=== PATIENT | female | born 1995 | race American Indian/Alaskan Native ===

== ENCOUNTER 2018-09-27 19:38 | Emergency (ER) | payer MEDICAID ==
--- NOTE | 2018-09-27 19:49 | Emergency Department Report ---
Blank Doc - Documentation Documentation: This is a 23-year-old female that presents with abdominal pain, right knee and right ankle pain s/p fall. Stated is 16 weeks . Denies any vaginal bleeding. This initial assessment/diagnostic orders/clinical plan/treatment(s) is/are subject to change based on patient's health status, clinical progression and re- assessment by fellow clinical providers in the ED. Further treatment and workup at subsequent clinical providers discretion. Patient/guardians urged not to elope from the ED as their condition may be serious if not clinically assessed and managed. Initial orders include: 1- Patient sent to [facility] for further evaluation and treatment 2- US OB
[2018-09-27 19:51] VITALS: BP 135/69
[2018-09-27] MEDS ORDERED: TYLENOL PO ONE (19:57)
[2018-09-27] MEDS ORDERED: TYLENOL ONE (19:57)
--- NOTE | 2018-09-27 21:51 | Ultrasound Report ---
ULTRASOUND OBSTETRIC INDICATION: abdominal pain. Clinical Gestational Age (GA): Not provided. TECHNIQUE: Transabdominal. COMPARISON: None available. FINDINGS: There is a single intrauterine . Biparietal Diameter = 2.9 cm = 15 weeks, 2 day(s). Head Circumference = 11.5 cm = 15 weeks, 4 day(s). Abdominal Circumference = 9.5 cm = 15 weeks, 5 day(s). Femur Length = 1.9 cm = 15 weeks, 4 day(s). Average Ultrasound Age (AUA) = 15 weeks, 4 day(s). Heart Rate: 174 beats per minute. Estimated Weight in grams (if calculated): 129 Position: breech. Cervix: Closed. Length in cm (if measured): 3.2 Placenta: anterior and free of the os. Amniotic Fluid Volume: normal Maternal Adnexa: No significant abnormality. IMPRESSION: 1. Single, living intrauterine with estimated sonographic age of 15 weeks, 4 day(s). 2. No significant sonographic abnormality. Signer Name: Rajan Paulino MD Signed: 09/27/2018 9:47 PM Workstation Name: [email or web address]
--- NOTE | 2018-09-28 00:15 | Emergency Department Report ---
ED Abdominal Pain HPI - General Chief Complaint: Abdominal Pain Stated Complaint: RIGHT KNEE AND ANKLE PAIN ABD PAIN Time Seen by Provider: 09/27/18 19:48 Source: patient, EMS Mode of arrival: Ambulatory Limitations: No Limitations - History of Present Illness Initial Comments: Pt is a 23 y/o aaf who presents for abd pain with vaginal bleeding today s/p GLF today landng on right knee and akle, pt denies hx of ovarian cyst or fibroidst LMP 4 weeks ago , no hx of AUB , pt denies fever or chills there is nausea no vomiting there are no exacerbating or relieve factors. pt remains ambulatory with steady gait at this time. MD Complaint: abdominal pain Onset/Timin -: days(s) Location: diffuse Migration to: no migration Severity: moderate Severity scale (0 -10): 5 Quality: cramping Consistency: intermittent Improves With: nothing Worsens With: nothing Associated Symptoms: nausea. denies: vomiting, diarrhea, fever, chills, constipation, dysuria, melena, hematuria - Related Data LMP Date: 10/08/18 Previous Rx's Medication Instructions Recorded Last Taken Type Acetaminophen [Acetaminophen TAB] 650 mg PO Q6HR PRN #30 tablet 09/28/18 Unknown Rx Menthol/Camphor [[place] 1 applicatio TP QID PRN #1 tube 09/28/18 Unknown Rx Ointment] Allergies Allergy/AdvReac Type Severity Reaction Status Date / Time No Known Allergies Allergy Unverified 09/27/18 19:51 ED Review of Systems ROS: Stated complaint: RIGHT KNEE AND ANKLE PAIN ABD PAIN Other details as noted in HPI Constitutional: denies: chills, fever Eyes: denies: eye pain, eye discharge, vision change ENT: denies: ear pain, throat pain Respiratory: denies: cough, shortness of breath, wheezing Cardiovascular: denies: chest pain, palpitations Endocrine: no symptoms reported Gastrointestinal: abdominal pain, nausea. denies: vomiting, diarrhea, constipation, hematemesis, melena, hematochezia Genitourinary: denies: urgency, dysuria, frequency, hematuria, discharge, abnormal menses, dyspareunia Musculoskeletal: other (right knee and ankle ). denies: back pain, joint swelling, arthralgia Skin: denies: rash, lesions Neurological: denies: headache, weakness, paresthesias Psychiatric: denies: anxiety, depression Hematological/Lymphatic: denies: easy bleeding, easy bruising ED Past Medical Hx - Past Medical History Previous Medical History?: Yes Hx Hypertension: Yes Hx Diabetes: Yes (gestational) - Surgical History Past Surgical History?: No - Social History Smoking Status: Former Smoker Substance Use Type: None - Medications Home Medications: Home Medications Medication Instructions Recorded Confirmed Last Taken Type Acetaminophen [Acetaminophen TAB] 650 mg PO Q6HR PRN #30 tablet 09/28/18 Unknown Rx Menthol/Camphor [[place] 1 applicatio TP QID PRN #1 tube 09/28/18 Unknown Rx Ointment] ED Physical Exam - General Limitations: No Limitations General appearance: alert, in no apparent distress - Head Head exam: Present: normocephalic, normal inspection - Expanded Head Exam Expanded Head exam: Absent: laceration, abrasion, contusion, hematoma, racoon eyes, maher's sign, general tenderness, tenderness of temporal artery, CSF rhinorrhea, CSF otorrhea - Eye Eye exam: Present: normal appearance, PERRL, EOMI Pupils: Present: normal accommodation - ENT ENT exam: Present: normal orophraynx, mucous membranes moist, TM's normal bilaterally, normal external ear exam - Neck Neck exam: Present: normal inspection, tenderness, full ROM. Absent: meningismus, lymphadenopathy, thyromegaly - Expanded Neck Exam Expanded Neck exam: Absent: tenderness, midline deformity, anterior neck swelling, thyroid mass, carotid bruit, tracheal deviation - Respiratory Respiratory exam: Present: normal lung sounds bilaterally. Absent: respiratory distress, wheezes, stridor, chest wall tenderness - Cardiovascular Cardiovascular Exam: Present: regular rate, normal rhythm, normal heart sounds. Absent: systolic murmur, diastolic murmur, rubs, gallop - GI/Abdominal GI/Abdominal exam: Present: soft, normal bowel sounds. Absent: distended, tenderness, guarding, rebound, rigid, bruit, hernia - Rectal Rectal exam: Present: deferred - Extremities Exam Extremities exam: Present: normal inspection, full ROM, normal capillary refill. Absent: tenderness, pedal edema, joint swelling, calf tenderness - Expanded Lower Extremity Exam Right Knee exam: Present: full ROM, pain w/ pronation/supination, full knee extension. Absent: tenderness, abrasion, laceration, ecchymosis, deformity, crepidus, dislocation, erythema, effusion, posterior draw sign, pain/laxity with valgus, pain/laxity with varus Lower Leg exam: Present: full ROM. Absent: tenderness, swelling Ankle exam: Present: full ROM, tenderness, swelling (right lateral ). Absent: abrasion, laceration, ecchymosis, deformity, crepidus, dislocation, erythema, anterior draw sign Foot/Toe exam: Present: normal inspection, full ROM. Absent: tenderness, swelling, abrasion, laceration, ecchymosis, deformity, crepidus, dislocation, erythema, amputation, puncture wound, foreign body, calcaneal tenderness, tenderness at base of 5th metatarsal, nail avulsion, subungual hematoma Neuro vascular tendon exam: Present: no vascular compromise. Absent: pulse deficit, motor deficit, sensory deficit, tendon deficit Gait: Positive: observed and normal - Back Exam Back exam: Present: normal inspection, full ROM. Absent: tenderness, CVA tenderness (R), CVA tenderness (L), muscle spasm, paraspinal tenderness, vertebral tenderness, rash noted - Neurological Exam Neurological exam: Present: alert, oriented X3, CN II-XII intact, normal gait, reflexes normal. Absent: motor sensory deficit - Psychiatric Psychiatric exam: Present: normal affect, normal mood - Skin Skin exam: Present: warm, dry, intact, normal color. Absent: rash ED Course Vital Signs 09/27/18 19:49 Temperature 98 F Pulse Rate 88 Respiratory 18 Rate Blood Pressure 135/69 O2 Sat by Pulse 98 Oximetry ED Medical Decision Making - Radiology Data Radiology results: report reviewed, image reviewed ULTRASOUND OBSTETRIC INDICATION: abdominal pain. Clinical Gestational Age (GA): Not provided. TECHNIQUE: Transabdominal. COMPARISON: None available. FINDINGS: There is a single intrauterine . Biparietal Diameter = 2.9 cm = 15 weeks, 2 day(s). Head Circumference = 11.5 cm = 15 weeks, 4 day(s). Abdominal Circumference = 9.5 cm = 15 weeks, 5 day(s). Femur Length = 1.9 cm = 15 weeks, 4 day(s). Average Ultrasound Age (AUA) = 15 weeks, 4 day(s). Heart Rate: 174 beats per minute. Estimated Weight in grams (if calculated): 129 Position: breech. Cervix: Closed. Length in cm (if measured): 3.2 Placenta: anterior and free of the os. Amniotic Fluid Volume: normal Maternal Adnexa: No significant abnormality. IMPRESSION: 1. Single, living intrauterine with estimated sonographic age of 15 weeks, 4 day(s). 2. No significant sonographic abnormality. Signer Name: Rajan Paulino MD Signed: 09/27/2018 9:47 PM Workstation Name: [email or web address] Transcribed By: MN Dictated By: Rajan Paulino MD Electronically Authenticated By: Rajan Paulino MD Signed Date/Time: 09/27/182146 DD/ 44 TD/TT: - Medical Decision Making US Single IUP 15 Weeks and 4 days , FHR 174 bpm , knee xray is normal, ankle xray is normal , plan dc to home with rx for tylenol, tiger balm, pt will follow up with OBGYN in 2-3 days. follow up with pcp in 2-3 days retur to ed if symptoms worsen. Critical care attestation.: If time is entered above; I have spent that time in minutes in the direct care of this critically ill patient, excluding procedure time. ED Disposition Clinical Impression: Fall Qualifiers: Encounter type: initial encounter Qualified Code(s): W19.XXXA - Unspecified fall, initial encounter Knee strain Qualifiers: Encounter type: initial encounter Laterality: right Qualified Code(s): S86.911A - Strain of unspecified muscle(s) and tendon(s) at lower leg level, right leg, initial encounter Strain of ankle, right Qualifiers: Encounter type: initial encounter Qualified Code(s): S96.911A - Strain of unspecified muscle and tendon at ankle and foot level, right foot, initial encounter Disposition: DC-01 TO HOME OR SELFCARE Is pt being admited?: No Does the pt Need Aspirin: No Condition: Stable Instructions: Abdominal Pain (ED), Knee Pain (ED), Ankle Sprain (ED) Prescriptions: Acetaminophen [Acetaminophen TAB] 650 mg PO Q6HR PRN #30 tablet PRN Reason: Pain Menthol/Camphor [[place] Ointment] 1 applicatio TP QID PRN #1 tube PRN Reason: pain Referrals: KAYLYN BUTTS [Other] - 3-5 Days Forms: Work/School Release Form(ED) Time of Disposition: 01:06
--- NOTE | 2018-09-28 01:12 | XRay Report ---
RIGHT ANKLE 3 VIEWS . INDICATION / CLINICAL INFORMATION: ankle pain. COMPARISON: None available. FINDINGS: No significant skeletal abnormality. Signer Name: Bradley Chauhan MD FACR Signed: 09/28/2018 1:08 AM Workstation Name: [email or web address]
--- NOTE | 2018-09-28 01:13 | XRay Report ---
RIGHT KNEE 3 VIEWS INDICATION / CLINICAL INFORMATION: knee pain. COMPARISON: None available. FINDINGS: No significant skeletal abnormality Signer Name: Bradley Chauhan MD FACR Signed: 09/28/2018 1:08 AM Workstation Name: [email or web address]
== END 2018-09-28 01:20 | disposition home or self-care (01) ==
LOC: ED 19:38
DX: O9A.212 Injury, poisoning and certain other consequences of external causes complicating pregnancy, second trimester (principal); S86.911A Strain of unspecified muscle(s) and tendon(s) at lower leg level, right leg, initial encounter; S96.911A Strain of unspecified muscle and tendon at ankle and foot level, right foot, initial encounter; O20.8 Other hemorrhage in early pregnancy; O10.912 Unspecified pre-existing hypertension complicating pregnancy, second trimester; O24.419 Gestational diabetes mellitus in pregnancy, unspecified control; Z87.891 Personal history of nicotine dependence; Z79.899 Other long term (current) drug therapy; Z3A.15 15 weeks gestation of pregnancy; W18.39XA Other fall on same level, initial encounter; Y93.89 Activity, other specified; Y92.89 Other specified places as the place of occurrence of the external cause; Y99.8 Other external cause status
CPT/HCPCS: 76805

== ENCOUNTER 2018-11-01 20:41 | Outpatient (CLI) | payer MEDICAID ==
[2018-11-01 22:41] VITALS: BP 128/71
== END 2018-11-01 23:25 | disposition home or self-care (01) ==
LOC: EDSTATUS 21:12 → TRG 21:16
PROVIDERS: ATTEND Obstetrics & Gynecology
DX: O26.892 Other specified pregnancy related conditions, second trimester (principal); R42 Dizziness and giddiness; Z3A.20 20 weeks gestation of pregnancy; Z87.891 Personal history of nicotine dependence
CPT/HCPCS: 59025

== ENCOUNTER 2018-11-10 23:41 | Outpatient (CLI) | payer MEDICAID ==
[2018-11-11 00:24] VITALS: BP 138/85
[2018-11-11 01:21] LABS: Bacteria,Urine 1+ /HPF (Negative); Bilirubin,Urine NEG (Negative); Blood,Urine NEG (Negative); Color,Urine Yellow (Yellow); Mucus,Urine FEW /HPF; Protein,Urine <15 mg/dL mg/dL (Negative); Urobilinogen,Urine < 2.0 mg/dL (<2.0)
== END 2018-11-11 00:55 | disposition home or self-care (01) ==
LOC: TRG 23:41
PROVIDERS: ATTEND Obstetrics & Gynecology
DX: O47.02 False labor before 37 completed weeks of gestation, second trimester (principal); Z3A.22 22 weeks gestation of pregnancy
CPT/HCPCS: 59025; 81001